=== PATIENT | male | born 1955 | race Caucasian/White ===

== ENCOUNTER 2019-11-21 06:52 | Day surgery (SDC) | payer OTHER ==
[~2019-11-21 06:52] MED LIST: COZAAR100 MG PO; TRELEGY ELLIPT1 EACH IH
[2019-11-21] MEDS ORDERED: DUI500 PO (14:43)
[2019-11-21] MEDS ORDERED: PERCOCET 5-3251 EACH PO (14:43)
== END 2019-11-21 17:10 | disposition home or self-care (01) ==
LOC: CIR.AMB 06:52
PROVIDERS: ATTEND Orthopaedic Surgery
DX: S52.571A Other intraarticular fracture of lower end of right radius, initial encounter for closed fracture (principal); Z20.828 Contact with and (suspected) exposure to other viral communicable diseases
CPT/HCPCS: 25609; 20902; C1776